=== PATIENT | male | born 1980 | race African-American/Black ===

== ENCOUNTER 2024-05-05 02:09 | Day surgery (SDC) | payer BC, SELFPAY ==
[2024-04-26 15:30] VITALS: BMI 29.2
--- NOTE | 2024-04-26 15:53 | SUR.PREOP ---
Report to the Outpatient Waiting Room, entrance under the green pavilion located off [facility], at time 0600 on date 05/05/24. Planned Procedure Time: 0730.? Time changes happen often and if your time is changed the preop area will call you the afternoon before. - You and your visitor will be asked to self-screen and do not enter if you have any COVID symptoms. Please call surgeon if you need to reschedule. - A mask is optional within the hospital at this time. Patients may have clear liquids (water, carbonated beverages, clear teas, apple juice) until 3 hours prior to surgery with a maximum of 20 ounces. - No food from midnight until time of surgery and no smoking - Infants may have breast milk until 4 hours before surgery, formula 6 hours prior to surgery. - Children will be allowed to drink immediately following surgery.? If applicable, please bring a bottle or sippy cup to assist with drinking. Juice, water, soda, and popsicles are readily available.? For infants on formula, please bring formula the day of surgery.? Pacifiers are allowed. Take only the following medications with a SIP of water on the morning of surgery: _metoprolol___bring in inhalers DO NOT STOP ANY OF YOUR OTHER PRESCRIPTION MEDICATIONS PRIOR TO SURGERY EXCEPT THE FOLLOWING Medications to discontinue per physician __valsartin day of surgery Date to take last dose Please no make-up, nail trinidadian, hairspray, perfume, deodorant, or body powder the day of surgery.? No jewelry (including any body piercings) or valuables the day of surgery, leave them at home.? Please take a shower or bath the night before, or the morning of, surgery with an antibacterial soap.? Wear comfortable, loose fitting clothing.? Children are encouraged to wear pajamas. - Jewelry must be removed prior to entering the operating room.? Rings and piercings that are not removed may be cut off. - The hospital will not accept responsibility for valuables.? - Please leave all valuables, including medications, at home the day of surgery. If you are going home after surgery, a licensed courtesy driver must drive you home.? - NO public transportation without another adult if you receive anesthesia. - We recommend that an adult stay with you for 24 hours following discharge. - We also recommend that you do not drive, make important decision, drink alcoholic beverages, or take any drugs that were not prescribed by your health care provider for at least 24 hours after your discharge time. For Pediatric surgeries, we recommend two adults accompany the child home. Follow any additional instructions given to you from your surgeon. Telephone instructions given to _patient_and asked if any additional questions and then verbalized understanding. Patient advised to call surgeon office or pre surgery nurse liaison [phone] if any additional questions.
[2024-05-05] VITALS (9 sets, daily range): BP systolic 102–147; BP diastolic 69–94; PULSE 52–67; RESP 13–18; TEMP 36.2–36.4; O2SAT 100
[2024-05-05] MEDS: LACTATED RINGERS 1,000 ML 30 ML IV CONT (06:30)
--- NOTE | 2024-05-05 06:30 | ECG_ITS ---
Test Date: 2024-05-05 07:09:04 Measurements Intervals [place] Rate: 61 P: 54 [place]: 170 QRS: 15 QRSD: 93 T: 6 QT: 390 QTc: 394 Interpretive Statements SINUS RHYTHM BORDERLINE ECG No previous ECG available for comparison Electronically Signed On 05-05-2024 07:25:26 CDT by Aidan Ponce M.D.
--- NOTE | 2024-05-05 06:50 | WPDANESEPPF ---
Anes - Initial Pre Proc Eval Procedure: Operation Date: 05/05/24 07:30 Proposed Procedures p CO2 Laser Penile and Scrotal Condyloma, - Mihir Ordoñez MD s Bilateral Vasectomy - Mihir Ordoñez MD Date/Time: 05/05/24 06:50 Surgeon: Mihir Ordoñez MD Pre Op Diagnosis: sterilization, penile and scrotal lesions Patient Data Age: 44 Gender: M Height: 1.57 m Weight: 72.58 kg Allergies Allergy/AdvReac Type Severity Reaction Status Date / Time morphine AdvReac Other Verified 04/26/24 15:40 Home Medications Medication Instructions Recorded Confirmed Type albuterol 90 mcg-budesonide 80 2 inh inhalation PRN 04/26/24 04/26/24 History mcg/actuation HFA aerosol inhaler (Airsupra) albuterol sulfate 90 mcg/actuation 2 inh inhalation DAILY PRN sob 04/26/24 04/26/24 History aerosol inhaler dupilumab 300 mg/2 mL subcutaneous 300 mg subcut [id number] 04/26/24 04/26/24 History syringe (Dupixent) metoprolol tartrate 25 mg tablet 25 mg PO DAILY 04/26/24 04/26/24 History valsartan 80 mg tablet 80 mg PO DAILY 04/26/24 04/26/24 History Patient hx anesthesia problems: none Family hx anesthesia problems: none Results Review: All pre-operative results and documents have been reviewed as part of the pre-operative evaluation. [facility] Past Medical History Medical History (Updated 05/05/24 @ 06:51 by Wili Garsia MD) Asthma HTN (hypertension) WILLIAM (obstructive sleep apnea) Overweight Paroxysmal A-fib Social History Social History Smoking status: Never smoker Living arrangements: with family Anes - Eval Final PreProcedure Day of Procedure 05/05/24 06:50 Patient weight: overweight Heart: regular rate and rhythm Lungs: clear to auscultation Airway: Mallampati scale class II Neurological: alert and oriented Last oral intake: >/= 8 hours ASA classification: III Emergent: no Anesthetic plan: proceed Anesthesia type and monitoring: general LMA and standard monitoring Results Review: All pre-operative results and documents have been reviewed as part of the pre-operative evaluation. Informed Consent: The patient's anesthetic plan and its attendant risks and benefits were discussed with the patient/family/POA. Questions were solicited and answers provided to the satisfaction of the patient/family/POA.
--- NOTE | 2024-05-05 07:35 | WPDHPUPDATE1 ---
History and Physical Update Update Date/Time: 05/05/24 07:35 History and Physical has been reviewed, including an updated exam of the patient. There are NO changes in the patient's condition. Risks, benefits, and alternatives have been discussed and questions answered. Patient agrees to proceed with procedure.
--- NOTE | 2024-05-05 07:35 | PM.IMHP ---
H&P: HPI History of Present Illness Date/Time: 05/05/24 07:35 Chief Complaint: condyloma , desire for sterility PMFSH Past Medical History Medical History (Updated 05/05/24 @ 07:36 by Mihir Ordoñez MD) Asthma Condyloma HTN (hypertension) WILLIAM (obstructive sleep apnea) Overweight Paroxysmal A-fib Social History Social History Smoking status: Never smoker Living arrangements: with family Meds Home Medications and Allergies Home Medications Medication Instructions Recorded Confirmed Type albuterol 90 mcg-budesonide 80 2 inh inhalation PRN 04/26/24 04/26/24 History mcg/actuation HFA aerosol inhaler (Airsupra) albuterol sulfate 90 mcg/actuation 2 inh inhalation DAILY PRN sob 04/26/24 04/26/24 History aerosol inhaler dupilumab 300 mg/2 mL subcutaneous 300 mg subcut [id number] 04/26/24 04/26/24 History syringe (Dupixent) metoprolol tartrate 25 mg tablet 25 mg PO DAILY 04/26/24 04/26/24 History valsartan 80 mg tablet 80 mg PO DAILY 04/26/24 04/26/24 History Allergies Allergy/AdvReac Type Severity Reaction Status Date / Time morphine AdvReac Other Verified 04/26/24 15:40 Exam Narrative: penile condyloma x 2, scrotal condyloma Assessment and Plan Assessment and plan (1) Condyloma: Code(s): A63.0 - Anogenital (venereal) warts Status: Acute Plan Plan vasectomy and condyloma removal
[2024-05-05] MEDS: ceFAZolin 2 GM/D5W 50 ML 2 GM/50 ML BAG IVPB (07:42)
[2024-05-05] MEDS: ACETAMINOPHEN 500 MG TABLET 1000 MG PO (08:00)
[2024-05-05] MEDS: BUPivacaine HCL 0.5% PF 30 ML VIAL INFILTRATE (08:01)
--- NOTE | 2024-05-05 08:16 | W.PM.PROC2 ---
Procedure Note - Detailed Date of Procedure 05/05/24 Pre-op Diagnosis sterilization, penile and scrotal lesions Post-op Diagnosis Same Procedure Performed Bilateral vasectomy Excision and CO2 laser of condyloma Surgeon Mihir Ordoñez MD Anesthesia General Description of Procedure Informed consent is obtained. Patient taken to operating room. He was given IV antibiotics. Adjust anesthesia. He was prepped and draped in normal sterile fashion. Regressed the right vas deferens through the midline scrotal raphae. Skin was in the non scalpel technique and right vas deferens was brought to the skin surface. The vas was then from surrounding structures cleanser placed bilaterally and a 2 cm portion was removed and sent to specimen. Then cauterized the ends of vas, chromic suture placed on each end in a fascial interposition performed. We performed identical procedure on the contralateral side. The skin opening was small and therefore suture was not placed. We then identified the largest condyloma in the right distal shaft of the penis and a small portion was excised and sent as specimen. We then used the CO2 laser to destroy the remainder of this lesion and additional lesions on the penis and scrotum. In total the lesions treated on the penis were 10mm, 5mm, 2mm x2. On the scrotum lesions were 8mm x2, 5mm x2, 2mm x 2. There was good hemostasis. Antibiotic ointment placed over all sites dressing placed. Scrotal support applied. Patient taken to PACU in stable condition Pathology Yes Complications No immediate complications Condition Stable Disposition PACU
--- NOTE | 2024-05-05 09:51 | SUR.PHASEII ---
MD Ordoñez contacted silver recovery operator - wondering if pt can tolerate tramadol. Pt and pt states that he tolerates tramadol OK. Script was sent to pharmacy per MD Ordoñez. Pt education provided.
== END 2024-05-05 10:14 | disposition home or self-care (01) ==
PROVIDERS: Visit Provider Urology
PROC: (CPT 55250; principal; 2024-05-05 07:30)
PROC: (CPT 55250; 2024-05-05 07:30)
DX: Z30.2 Encounter for sterilization (principal); A63.0 Anogenital (venereal) warts; N49.1 Inflammatory disorders of spermatic cord, tunica vaginalis and vas deferens; J45.909 Unspecified asthma, uncomplicated; I10 Essential (primary) hypertension; G47.33 Obstructive sleep apnea (adult) (pediatric); I48.0 Paroxysmal atrial fibrillation; Z79.51 Long term (current) use of inhaled steroids
CPT/HCPCS: 55250; 17110; 54057; 88300; 88305; 93005; A9270; J0690; J1100; J2003; J2250; J2405; J2704; J3010; J7120